=== PATIENT | female | born 1975 | race Caucasian/White ===

== ENCOUNTER 2024-04-06 08:56 | Emergency (ER) | payer OTHER, SELFPAY ==
[2024-04-06 09:07] VITALS: BP 128/62; PULSE 75; RESP 20; TEMP 36.7; O2SAT 99
--- NOTE | 2024-04-06 10:16 | ED.GENADULT ---
HPI - General Adult General Chief complaint: Ear Stated complaint: Ear Pain Source: patient Mode of arrival: ambulatory Limitations: no limitations History of Present Illness HPI narrative: Patient presents for evaluation of left-sided ear discomfort with decreased hearing for the past two days. Denies any tinnitus, drainage from the ear, fever, chills, nausea, vomiting, sore throat, cough, shortness of breath. No history of similar symptoms. She has not tried any therapies to assist with her symptoms. Related Data Home Medications Medication Instructions Recorded Confirmed norethindrone 1 mg-ethinyl 1 tablet PO DAILY 04/06/24 04/06/24 estradiol 10 mcg (24)-iron 10 mcg(2) tablet (Lo Loestrin Fe) Allergies Allergy/AdvReac Type Severity Reaction Status Date / Time Sulfa (Sulfonamide Allergy Mild Rash Verified 04/06/24 09:14 Antibiotics) Review of Systems Review of Systems: CONSTITUTIONAL: Denies fever, chills, or sweats. EYES: Denies visual changes, redness, or discharge. ENT:Reports left sided ear discomfort with decreased hearing on the left. Denies sore throat, tinnitus or drainage from the ear CARDIOVASCULAR: Denies chest pain, palpitations, or edema. RESPIRATORY: Denies cough or dyspnea. GASTROINTESTINAL: Denies abdominal pain, nausea, vomiting, or diarrhea. GENITOURINARY: Denies dysuria or hematuria. SKIN: Denies rash or itching. MUSCULOSKELETAL: Denies back pain, joint pain, or myalgia. NEUROLOGIC: Denies headache, numbness, dizziness, or weakness. PSYCHIATRIC: Denies anxiety or depression. [facility] Past Medical History Medical History No pertinent past medical history Surgical History Surgical History H/O ovarian cystectomy left History of delivery 2005 Family History Family History Grandparent Diabetes mellitus Social History Social History Smoking status: Former smoker Smoking end date: 09/04/04 Alcohol intake: never Substance use: never Substance use type: does not use Lack of Transportation: No Lack of Food: Never True Current Housing: I Have Housing Concerned About Future Housing: No Difficulty Paying Gas/Electric Bills: No Difficulty Paying for Meds: No Currently Unemployed: No Education: Associate Degree Difficulty w/ Childcare or Family Care: No Occupation/Education: occupation Additional occupation/education comments: office work Exam Narrative: GENERAL: Well-appearing, well-nourished, and in no acute distress. HEAD: Normocephalic, atraumatic. EYES: PERRLA and EOMI. ENT: Nares clear, no rhinorrhea or epistaxis. Mucous membranes moist. Oropharynx without tonsillar hypertrophy exudate or other lesions. Bilateral ear canals are ceruminous. Unable to visualize the tympanic membranes NECK: Supple. No adenopathy or masses. No carotid bruits or JVD CHEST: Clear to auscultation. No respiratory distress. No wheezes rales or rhonchi HEART: Regular rate and rhythm. No murmur heard. Normal peripheral pulses. ABDOMEN: Soft, nontender, nondistended, normal active bowel sounds. EXTREMITIES: Normal range of motion. No edema. SKIN: Warm, dry, no rash. NEURO: No focal deficits. Alert and oriented x3. PSYCH: Normal mood and affect. Course Course Emergency Course: This is a 48-year-old female who presented for evaluation of left-sided ear discomfort with decreased hearing. She has evidence of cerumen impactions. Ears were irrigated with hydrogen peroxide and water. Cerumen was completely removed. Tympanic membranes intact. Left ear canal slightly erythematous. Will discharge with ofloxacin. Follow up with primary provider. Go to the ER for worsening symptoms. Patient in agreement frankie
== END 2024-04-06 10:19 | disposition home or self-care (01) ==
PROVIDERS: Emergency Provider Nurse Practitioner; PCP Family Medicine Adolescent Medicine
DX: H61.23 Impacted cerumen, bilateral (principal); Z87.891 Personal history of nicotine dependence
CPT/HCPCS: 69209; 99213; G0463